=== PATIENT | male | born 1945 | race Caucasian/White ===

== ENCOUNTER 2022-04-05 07:20 | Outpatient (CLI) | payer OTHER ==
[~2022-04-05 07:20] MED LIST: AMLODIPINE BESYL5 MG; CAMBIA50 MG; ENALAPRIL MALEA10 MG; GLUMETZA1000 MG; ISOSORBIDE MONO60 MG; LIPITOR40 MG; NEURIN; NORVASC5 MG; OSEL75CA PO; TAMS0.4C; TOPROL XL100 MG; TUSSI PRES-B L120 M1 PO; VITACEL TABLET1 TAB
== END 2022-04-05 07:21 | disposition home or self-care (01) ==
LOC: NUCLEAR 07:20
PROVIDERS: ATTEND Internal Medicine Cardiovascular Disease
DX: I25.119 Atherosclerotic heart disease of native coronary artery with unspecified angina pectoris (principal)
CPT/HCPCS: 78452; 93017; A9500; J0153